=== PATIENT | female | born 1980 | race African-American/Black ===

== ENCOUNTER 2020-02-01 06:53 | Emergency (ER) | payer BC ==
[~2020-02-01] VITALS: Ht 167.6 cm; Wt 71.7 kg
[2020-02-01 07:07] VITALS: BP 162/86
[2020-02-01] MEDS ORDERED: FAMOTIDINE20 MG ORAL (07:21)
[2020-02-01] MEDS ORDERED: PREDNISONE20 MG ORAL (07:21)
[2020-02-01 07:26] VITALS: BP 146/83
--- NOTE | 2020-02-01 07:30 | Emergency Room Report ---
History of Present Illness General Chief Complaint: Headache Source: Patient Present Illness HPI Disclaimer: Please note that this report is being documented using [employer] technology. This can lead to erroneous entry secondary to incorrect interpretation by the dictating instrument. HPI: 39-year-old female no medical history presents with swelling of the scalp. She states she woke up this morning with itching and swelling of her scalp and swelling around her left eye. She took a Claritin prior to arrival with some relief. She denies any trauma. She denies any fevers nausea or vomiting. She states this is never happened before. She denies any new soaps lotions or creams. Swelling is associated with some discomfort about 8 out of 10. PMH: Patient denies any past medical history PSH: Reviewed Social Hx: Denies smoking drinks occasionally denies illicit drug use Allergies: Coded Allergies: No Known Allergies (Unverified , 02/01/20) COVID-19 Screening Contact w/high risk pt: No Experienced COVID-19 symptoms?: No COVID-19 Testing performed RESEARCH NURSE PRACTITIONER: No Patient History Last Menstrual Period: depot shot Reviewed Nursing Documentation: PMH: Agreed; PSxH: Agreed Nursing Documentation-PMH Past Medical History: No Stated History Review of Systems All Other Systems: negative except mentioned in HPI Physical Exam Vital Signs Date Time Temp Pulse Resp B/P (MAP) Pulse Ox O2 Delivery O2 Flow Rate FiO2 02/01/20 06:58 98.4 89 17 162/86 (111) 99 Room Air Sp02 EP Interpretation: reviewed, normal General Appearance: well appearing, no apparent distress Head: normocephalic, atraumatic, other - Area of erythema noted to base of neck appear to be possible insect bite with swelling noted superiorly. Eyes: bilateral eye PERRL, bilateral eye EOMI ENT: hearing grossly normal, moist mucus membranes Neck: full range of motion, supple Respiratory: lungs clear, normal breath sounds, no rhonchi, no respiratory distress, no retraction, no wheezing Cardiovascular #1: normal peripheral pulses, regular rate, rhythm, no murmur Gastrointestinal: non tender, soft, non-distended, no guarding Neurologic: alert, oriented x3, no focal defects Skin: normal color, warm/dry Medical Decision Making Diagnostic Impression: Primary Impression: Allergic reaction ER Course Differential diagnosis included but not limited to local allergic reaction, insect bite, less likely cellulitis. On my exam it appeared patient had a possible insect bite to the base of the neck causing a local allergic reaction with some edema. I believe less likely abscess or cellulitis. Patient afebrile and in no acute distress. Patient did take an antihistamine prior to arrival. Will start on low-dose steroid and Pepcid. Will instruct to continue Claritin twice daily as needed for itching and swelling. This will only be for the next few days. Patient otherwise nontoxic no acute distress stable for discharge. Return precautions were given. Ice pack applied in the ER with some relief . Last Vital Signs Date Time Temp Pulse Resp B/P (MAP) Pulse Ox O2 Delivery O2 Flow Rate FiO2 02/01/20 07:07 98.4 78 17 162/86 99 Room Air Status: improved Disposition: HOME, SELF-CARE Condition: Stable Scripts Famotidine* (Pepcid 20mg tablet*) 20 Mg Tablet 20 MG ORAL TWICE A DAY, #10 TAB 0 Refills Prov: Jt Carr M.D. 02/01/20 Prednisone* (PREDNISONE*) 20 Mg Tablet 20 MG ORAL DAILY, #4 TAB Prov: Jt Carr M.D. 02/01/20 Patient Instructions: Angioedema, [id number] Additional Instructions: Please take your Claritin twice daily for the next 5 days Patient is instructed to follow-up with her primary care doctor, primary care clinic or [facility] in 1 to 2 days. Patient instructed to return for any worsening symptoms or concerns. Disclaimer: Please note that this report is being documented using [employer] technology. This can lead to erroneous entry secondary to incorrect interpretation by the dictating instrument. Jt Carr M.D. Feb 01, 2020 07:30
== END 2020-02-01 07:25 | disposition home or self-care (01) ==
LOC: EMR 07:10
DX: T63.481A Toxic effect of venom of other arthropod, accidental (unintentional), initial encounter (principal); T78.49XA Other allergy, initial encounter; Y92.9 Unspecified place or not applicable
CPT/HCPCS: 99282; J7512